=== PATIENT | female | born 1975 | race Caucasian/White ===

== ENCOUNTER 2018-03-29 10:02 | Emergency (ER) | payer OTHER ==
[2018-03-29 11:50] LABS: URINE PH (Dip) POC 5.5 (5.0-8.5)
[2018-03-29 11:50] LABS: URINE BLOOD (Dip) POC 3+ (NEGATIVE); URINE GLUCOSE (Dip) POC Negative (NEGATIVE); URINE KETONES (Dip) POC Negative (NEGATIVE); URINE LEUKOCYTE EST (Dip) POC Negative (NEGATIVE); URINE NITRITE (Dip) POC Negative (NEGATIVE); URINE TOTAL PROTEIN POC Negative (NEGATIVE)
[2018-03-29 11:51] LABS: ADD MAN DIFF? NO
[2018-03-29 11:58] LABS: WHITE BLOOD COUNT 5.6 10^3/ul (4.8-10.8)
[2018-03-29 11:58] LABS: BASOPHILS % 0.5 % (0.0-2.0); EOSINOPHILS # 0.1 10^3/ul (0.0-0.5); EOSINOPHILS % 2.5 % (0.0-7.0); HEMATOCRIT 37.7 % (37.0-47.0); HEMOGLOBIN 12.8 g/dl (12.0-16.0); LYMPHOCYTES # 1.3 10^3/ul (0.8-2.9); LYMPHOCYTES % 23.6 % (15.0-51.0); MEAN CORPUSCULAR HEMOGLOBIN 31.8 pg (29.0-33.0); MEAN CORPUSCULAR VOLUME 93.8 fl (82.0-101.0); MEAN PLATELET VOLUME 10.9 fl (7.4-10.4); MONOCYTE # 0.5 10^3/ul (0.3-0.9); MONOCYTES % 9.1 % (0.0-11.0); NEUTROPHIL # 3.6 10^3/ul (1.6-7.5); NEUTROPHILS % 64.1 % (39.0-77.0); PLATELET COUNT 259 10^3/UL (140-415); RED BLOOD COUNT 4.02 10^6/ul (4.20-5.40); RED CELL DISTRIBUTION WIDTH 12.5 % (11.5-14.5)
[2018-03-29 12:16] LABS: ALANINE AMINOTRANSFERASE 26 IU/L (13-69); ALBUMIN 4.2 g/dl (3.3-4.9); ALKALINE PHOSPHATASE 90 IU/L (42-121); ANION GAP 11 (8-16); ASPARTATE AMINO TRANSFERASE 37 IU/L (15-46); BILIRUBIN,INDIRECT 0.2 mg/dl (0-1.1); BILIRUBIN,TOTAL 0.2 mg/dl (0.2-1.3); BLOOD UREA NITROGEN 25 mg/dl (7-20); CARBON DIOXIDE 28 mmol/L (21-31); CHLORIDE 105 mmol/L (97-110); CREATININE 0.63 mg/dl (0.44-1.00); GLUCOSE 91 mg/dl (70-220); POTASSIUM 4.2 mmol/L (3.5-5.1); SODIUM 140 mmol/L (135-144); TOTAL PROTEIN 7.7 g/dl (6.1-8.1)
== END 2018-03-29 13:39 | disposition home or self-care (01) ==
LOC: FTE 10:02
DX: R51 Headache (principal); R53.1 Weakness
CPT/HCPCS: 80053; 81003; 85025; 99283

== ENCOUNTER 2018-05-08 10:12 | Emergency (ER) | payer OTHER ==
[2018-05-08 12:29] LABS: URINE BLOOD (Dip) POC Trace-lysed (NEGATIVE); URINE GLUCOSE (Dip) POC Negative (NEGATIVE); URINE KETONES (Dip) POC Negative (NEGATIVE); URINE LEUKOCYTE EST (Dip) POC Negative (NEGATIVE); URINE NITRITE (Dip) POC Negative (NEGATIVE); URINE TOTAL PROTEIN POC Negative (NEGATIVE)
== END 2018-05-08 13:15 | disposition home or self-care (01) ==
LOC: FTE 10:12
DX: N76.0 Acute vaginitis (principal)
CPT/HCPCS: 76830; 76856; 81003; 81025; 99284-25

== ENCOUNTER 2019-04-19 18:20 | Inpatient (IN) | payer OTHER ==
[2019-04-19] MEDS ORDERED: ZOLPIDEM 5 MG TAB PO (20:00)
[2019-04-19] MEDS ORDERED: HYDROCODONE/APAP (5/325) TAB PO (20:00)
[2019-04-19] MEDS ORDERED: NACL 0.9% 3 ML SYG IV (20:00)
[2019-04-19] MEDS ORDERED: NA PHOSPHATE/BIPHOS 133 ML ENEMA PR (20:00)
[2019-04-19] MEDS ORDERED: morphine 2 MG INJ IV (20:00)
[2019-04-19] MEDS: IBUPROFEN 600 MG TAB PO (20:28)
[2019-04-19] MEDS: DEXTROSE 5%-0.45% NACL 1,000 ML IV (22:04)
[2019-04-19] MEDS: FAMOTIDINE 20 MG INJ IV (22:04)
[2019-04-19] MEDS: BETAMETHASONE/CLOTRIMAZOLE 15 GM CR TOP (22:16)
[2019-04-19] MEDS: HYDROCORTISONE 2.5% 28.35 GM CR TOP ×2 (22:16→23:00)
[2019-04-20] MEDS: HYDROCORTISONE 2.5% 28.35 GM CR TOP ×2 (09:00→20:44)
[2019-04-20] MEDS: BETAMETHASONE/CLOTRIMAZOLE 15 GM CR TOP ×2 (09:00→20:44)
[2019-04-20] MEDS: DEXTROSE 5%-0.45% NACL 1,000 ML IV ×2 (09:18→16:36)
[2019-04-20] MEDS: FAMOTIDINE 20 MG INJ IV ×2 (09:28→20:43)
[2019-04-21] MEDS: DEXTROSE 5%-0.45% NACL 1,000 ML IV ×2 (05:47→20:14)
[2019-04-21] MEDS: FAMOTIDINE 20 MG INJ IV ×2 (09:23→20:09)
[2019-04-21] MEDS: BETAMETHASONE/CLOTRIMAZOLE 15 GM CR TOP ×2 (09:24→20:09)
[2019-04-21] MEDS: HYDROCORTISONE 2.5% 28.35 GM CR TOP ×2 (09:24→20:09)
[2019-04-22] MEDS: DEXTROSE 5%-0.45% NACL 1,000 ML IV ×2 (01:18→08:50)
[2019-04-22] MEDS: FAMOTIDINE 20 MG INJ IV (08:47)
[2019-04-22] MEDS: BETAMETHASONE/CLOTRIMAZOLE 15 GM CR TOP ×2 (08:49→22:42)
[2019-04-22] MEDS: HYDROCORTISONE 2.5% 28.35 GM CR TOP ×2 (08:49→22:43)
[2019-04-22] MEDS: ACETAMINOPHEN 325 MG TAB PO (13:20)
[2019-04-22] MEDS: ONDANSETRON 4 MG INJ IV (13:20)
[2019-04-22] MEDS: FAMOTIDINE 20 MG TAB PO (20:19)
[2019-04-22] MEDS: DOCUSATE SODIUM 100 MG CAP PO (23:22)
[2019-04-22] MEDS: BISACODYL (EC) 5 MG TAB PO (23:22)
[2019-04-23] MEDS: FAMOTIDINE 20 MG TAB PO ×2 (09:45→20:09)
[2019-04-23] MEDS: BETAMETHASONE/CLOTRIMAZOLE 15 GM CR TOP ×2 (09:47→20:09)
[2019-04-23] MEDS: HYDROCORTISONE 2.5% 28.35 GM CR TOP ×2 (09:47→20:09)
[2019-04-23] MEDS: LACTULOSE 30ML CUP PO (14:36)
[2019-04-24] MEDS: FAMOTIDINE 20 MG TAB PO ×2 (08:38→22:05)
[2019-04-24] MEDS: HYDROCORTISONE 2.5% 28.35 GM CR TOP ×2 (09:00→22:06)
[2019-04-24] MEDS: BETAMETHASONE/CLOTRIMAZOLE 15 GM CR TOP ×2 (09:00→22:06)
[2019-04-24] MEDS: DEXTROSE 5%-0.45% NACL 1,000 ML IV (10:16)
[2019-04-24] MEDS ORDERED: LABETALOL HCL 20MG INJ IV (12:00)
[2019-04-24] MEDS ORDERED: FENTAnyl 50 MCG/ML VIAL IV (12:00)
[2019-04-24] MEDS ORDERED: ONDANSETRON 4 MG INJ IV (12:00)
[2019-04-24] MEDS ORDERED: METOCLOPRAMIDE 10 MG INJ IV (12:00)
[2019-04-24] MEDS ORDERED: MEPERIDINE 25 MG INJ IV (12:00)
[2019-04-24] MEDS ORDERED: DIPHENHYDRAMINE 50 MG INJ IV (12:00)
[2019-04-24] MEDS ORDERED: HYDROmorphONE 1 MG/5 ML IV SYRINGE IV ×2 (12:00)
[2019-04-24] MEDS: ACETAMINOPHEN 325 MG TAB PO (18:37)
[2019-04-25] MEDS: FAMOTIDINE 20 MG TAB PO (09:46)
[2019-04-25] MEDS: HYDROCORTISONE 2.5% 28.35 GM CR TOP (09:46)
[2019-04-25] MEDS: BETAMETHASONE/CLOTRIMAZOLE 15 GM CR TOP (09:47)
== END 2019-04-25 13:45 | disposition home or self-care (01) | DRG 440 ==
LOC: PP2 18:20
PROC: CF2YYZZ Tomographic (Tomo) Nuclear Medicine Imaging of Hepatobiliary System and Pancreas using Other Radionuclide (ICD-10-PCS; principal; 2019-04-20)
DX: K85.10 Biliary acute pancreatitis without necrosis or infection (principal); K80.20 Calculus of gallbladder without cholecystitis without obstruction; E78.5 Hyperlipidemia, unspecified; K21.9 Gastro-esophageal reflux disease without esophagitis; E66.9 Obesity, unspecified; Z68.27 Body mass index [BMI] 27.0-27.9, adult
CPT/HCPCS: 74181; 78226; 80053; 80061; 83690; 83735; 84484; 84703; 85025; 85610; 85730; 93005